=== PATIENT | male | born 1990 | race Two or more races ===

== ENCOUNTER 2017-01-03 12:24 | Inpatient (IN) | payer SELFPAY ==
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
[2017-01-03] MEDS ORDERED: IOPAMIDOL (ISOVUE-300) 100 ML BTL ONE (13:21)
[2017-01-03] MEDS ORDERED: fentaNYL 100 MCG/2 ML INJ IVP ONE (14:17)
[2017-01-03] MEDS ORDERED: LORazepam 2 MG/ML INJ IVP ONE (14:17)
[2017-01-03] MEDS ORDERED: ACETAMINOPHEN 500 MG TAB PO ONE (16:06)
[2017-01-03] MEDS ORDERED: KETOROLAC 30 MG/1 ML SDV IVP ONE (16:06)
[2017-01-03] MEDS ORDERED: CYCLOBENZAPRINE 10 MG TAB PO ONE (16:07)
[2017-01-03] MEDS ORDERED: LIDOCAINE 5% 1 EA PATCH TD SCH (16:15)
[2017-01-03] MEDS ORDERED: LIDOCAINE 5% 1 EA PATCH TD ONE (16:15)
[2017-01-03 16:17] LABS: % IMMATURE GRANULYOCYTES 0.6 % (0.0-1.1); ABSOLUTE IMMATURE GRANULOCYTES 0.08 10^3/uL (0.00-0.10); ADD DIFF? NO; ADD MORPH? NO; ADD SCAN? NO; ATYPICAL LYMPHOCYTE FLAG 0 (0-99); FRAGMENT RBC FLAG 0 (0-99); HEMATOCRIT 42.5 % (40.0-51.0); HEMOGLOBIN 14.9 g/dL (13.7-17.5); LEFT SHIFT FLG 0 (0-99); LIPEMIA HEMOLYSIS FLAG 90 (0-99); MEAN CELL HEMOGLOBIN 33.9 pg (27.9-34.1); MEAN CELL HEMOGLOBIN CONCENTR. 35.1 g/dL (32.4-36.7); MEAN CELL VOLUME 96.8 fL (81.5-99.8); MEAN PLATELET VOLUME 10.4 fL (8.7-11.7); PLATELET CLUMPS FLAG 0 (0-99); PLATELET COUNT 219 10^3/uL (150-400); RED BLOOD CELL COUNT 4.39 10^6/uL (4.40-6.38); RED CELL DISTRIBUTION WIDTH 12.5 % (11.5-15.2)
[2017-01-03 16:23] LABS: ANION GAP 18 mEq/L (8-16); CALCIUM 8.9 mg/dL (8.5-10.4); CARBON DIOXIDE 19 mEq/l (22-31); CHLORIDE 109 mEq/L (97-110); CREATININE 0.6 mg/dL (0.7-1.3); GLOMERULAR FILTRATION RATE > 60; GLUCOSE 85 mg/dL (70-100); POTASSIUM 4.2 mEq/L (3.5-5.2); SODIUM 146 mEq/L (134-144)
[2017-01-03] MEDS ORDERED: ACETAMINOPHEN 325 MG TAB PO PRN (19:45)
[2017-01-03] MEDS ORDERED: ONDANSETRON 4 MG/2 ML VIAL IVP PRN (19:45)
[2017-01-03] MEDS ORDERED: HYDROmorphONE/DILAUDID 2 MG TAB PO PRN (19:55)
[2017-01-03] MEDS ORDERED: BEER 1 EACH EA PO SCH (20:00)
[2017-01-03] MEDS ORDERED: PATCH REMOVAL 1 EA PATCH TD SCH ×2 (21:00)
[2017-01-03] MEDS: ACETAMINOPHEN 500 MG TAB PO SCH (21:53)
[2017-01-03] MEDS: CYCLOBENZAPRINE 10 MG TAB PO SCH (21:53)
[2017-01-03] MEDS: LR 1,000 ML IV SCH (21:54)
[2017-01-03] MEDS: LIDOCAINE 5% 1 EA PATCH TD SCH (21:54)
[2017-01-03] MEDS: KETOROLAC 30 MG/1 ML SDV IVP SCH (23:27)
[2017-01-04] MEDS: ACETAMINOPHEN 500 MG TAB PO SCH ×2 (05:23→11:17)
[2017-01-04] MEDS: LR 1,000 ML IV SCH (05:23)
[2017-01-04] MEDS: KETOROLAC 30 MG/1 ML SDV IVP SCH ×2 (05:24→11:18)
[2017-01-04 08:33] VITALS: RESP 16; TEMP 98.5; O2SAT 98
[2017-01-04] MEDS: LIDOCAINE 5% 1 EA PATCH TD SCH (08:49)
[2017-01-04] MEDS: CYCLOBENZAPRINE 10 MG TAB PO SCH (08:49)
[2017-01-04 11:19] VITALS: BP 133/97; PULSE 75
--- NOTE | 2017-01-04 12:24 | TRAUMAPN ---
Assessment/Plan: PAD#1 01/04/2017 tertiary assessment negative Assessment: 1) Right rib fractures - IS to 1250, pain well controlled. CXR without PTX 2) Distal clavicular FX - using sling 3) ETOH abuse - getting beer daily, slightly jittery but patient and family states that it is at baseline 4) Tobacco abuse - stressed that he must stop tobacco use. Plan: If does well with IS AND pain control adequate will consider discharge later today. Subjective: I want to go home Objective: Vital Signs Temp Pulse Resp BP Pulse Ox 36.9 C 75 16 133/97 H 98 01/04/17 11:18 01/04/17 11:18 01/04/17 11:18 01/04/17 11:18 01/04/17 11:18 01/03/17 01/04/17 01/05/17 05:59 05:59 05:59 Intake Total 1200 Output Total 400 Balance 800 - C-Spine Clearance Cervical Spine Cleared: Yes Physical Exam - Physical Exam General Appearance: WD/WN (Evaluation done with the help of the kittitian interperter), alert, no apparent distress EENT: PERRL/EOMI, normal ENT inspection Neck: non-tender, full range of motion, supple, normal inspection Respiratory: lungs clear, normal breath sounds, other (No e to A changes) Cardiac/Chest: regular rate, rhythm Abdomen: normal bowel sounds, non-tender, soft Male Genitalia: deferred Rectal: deferred Back: Normal inspection Skin: normal color, warm/dry Extremities: normal range of motion, other (right arm in sling) Neuro/Psych: no motor/sensory deficits, alert, normal mood/affect, oriented x 3 Time Spent w/Patient (minutes): 25
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
== END 2017-01-04 15:41 | disposition home or self-care (01) | DRG 563 ==
LOC: OBSVTOIN 19:45 → F3N 19:57
PROVIDERS: ADMIT Surgery; ATTEND Surgery
DX: S42.031A Displaced fracture of lateral end of right clavicle, initial encounter for closed fracture (principal); S22.41XA Multiple fractures of ribs, right side, initial encounter for closed fracture; S40.211A Abrasion of right shoulder, initial encounter; V18.4XXA Pedal cycle driver injured in noncollision transport accident in traffic accident, initial encounter; Y93.55 Activity, bike riding; Z72.0 Tobacco use; F10.10 Alcohol abuse, uncomplicated; Y92.410 Unspecified street and highway as the place of occurrence of the external cause
CPT/HCPCS: 82947-QW; 92523-GN; 96374; 97161-GP; 97166-GO; J1885; J2060; J3010; L0172; Q9967

== ENCOUNTER 2017-01-07 04:01 | Inpatient (IN) | payer SELFPAY ==
[2017-01-07] MEDS ORDERED: LORazepam 2 MG/ML INJ ONE ×2 (04:33→06:25)
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
[2017-01-07] MEDS ORDERED: ONDANSETRON 4 MG/2 ML VIAL IVP PRN (04:43)
[2017-01-07] MEDS ORDERED: ACETAMINOPHEN 325 MG TAB PO PRN (04:43)
[2017-01-07] MEDS ORDERED: ONDANSETRON DISINTEGRATING 4 MG TAB PO PRN (04:43)
[2017-01-07] MEDS ORDERED: oxyCODONE IR 5 MG TAB PO PRN (04:43)
[2017-01-07] MEDS ORDERED: LORazepam 1 MG TAB PO PRN (04:45)
[2017-01-07] MEDS ORDERED: NS 1,000 ML IV SCH (04:45)
[2017-01-07] MEDS ORDERED: LORazepam 2 MG/ML INJ IVP PRN (04:45)
[2017-01-07 04:46] LABS: % IMMATURE GRANULYOCYTES 0.4 % (0.0-1.1); ABSOLUTE IMMATURE GRANULOCYTES 0.04 10^3/uL (0.00-0.10); ADD DIFF? NO; ADD MORPH? NO; ADD SCAN? NO; ATYPICAL LYMPHOCYTE FLAG 20 (0-99); FRAGMENT RBC FLAG 0 (0-99); HEMATOCRIT 38.6 % (40.0-51.0); HEMOGLOBIN 13.1 g/dL (13.7-17.5); LEFT SHIFT FLG 20 (0-99); LIPEMIA HEMOLYSIS FLAG 90 (0-99); MEAN CELL HEMOGLOBIN 33.8 pg (27.9-34.1); MEAN CELL HEMOGLOBIN CONCENTR. 33.9 g/dL (32.4-36.7); MEAN CELL VOLUME 99.5 fL (81.5-99.8); MEAN PLATELET VOLUME 10.3 fL (8.7-11.7); PLATELET CLUMPS FLAG 0 (0-99); PLATELET COUNT 218 10^3/uL (150-400); RED BLOOD CELL COUNT 3.88 10^6/uL (4.40-6.38); RED CELL DISTRIBUTION WIDTH 11.9 % (11.5-15.2)
[2017-01-07] MEDS ORDERED: LORazepam 2 MG/ML INJ IVP ONE ×5 (04:46→07:43)
[2017-01-07 05:00] LABS: INR 0.92 (0.83-1.16); PROTIME(PATIENT) 12.3 SEC (12.0-15.0)
[2017-01-07 05:13] LABS: ALANINE AMINOTRANSFERASE 69 IU/L (21-72); ALKALINE PHOSPHATASE 88 IU/L (38-126); ANION GAP 12 mEq/L (8-16); ASPARTATE AMINOTRANSFERASE 70 IU/L (17-59); BILIRUBIN,TOTAL 0.6 mg/dL (0.1-1.4); BILIRUBIN-CONJUGATED 0.4 mg/dL (0.0-0.5); BILIRUBIN-UNCONJUGATED 0.2 mg/dL (0.0-1.1); CALCIUM 9.4 mg/dL (8.5-10.4); CARBON DIOXIDE 23 mEq/l (22-31); CHLORIDE 102 mEq/L (97-110); CREATININE 0.6 mg/dL (0.7-1.3); ETHANOL SERUM < 10 mg/dL (0-10); GLOMERULAR FILTRATION RATE > 60; GLUCOSE 99 mg/dL (70-100); POTASSIUM 4.5 mEq/L (3.5-5.2); SODIUM 137 mEq/L (134-144)
[2017-01-07] MEDS: DEXMEDETOMIDINE HCL 400 MCG in NS 100 ML IV SCH ×4 (06:12→23:52)
[2017-01-07] MEDS ORDERED: PROPOFOL/EMULSION 1,000 MG/100 ML BOTTLE IV ONE (06:46)
[2017-01-07] MEDS ORDERED: ETOMIDATE 20 MG/10 ML VIAL IVP ONE (06:52)
[2017-01-07] MEDS ORDERED: ROCURONIUM 100 MG/10 ML VIAL IVP ONE (06:54)
[2017-01-07] MEDS ORDERED: ETOMIDATE 40 MG/20 ML INJ ONE (07:07)
[2017-01-07] MEDS ORDERED: PROPOFOL 200 MG/20 ML VIAL IVP ONE (07:16)
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
[2017-01-07] MEDS ORDERED: PROPOFOL/EMULSION 100 ML IV SCH ×2 (07:30→08:50)
[2017-01-07] MEDS: LORazepam 1 MG TAB PO SCH ×3 (09:09→16:48)
[2017-01-07] MEDS: fentaNYL/NACL 100 ML IV SCH ×2 (09:24→16:47)
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
[2017-01-07 10:16] LABS: BASE EXCESS -1.4 mEq/L (-2.5-2.5); BICARBONATE 22 mEq/L (22-26); MEASURED OXYGEN SATURATION 99 % (92-95); PCO2 34 mmHg (34-38); PO2 157 mmHg (65-75); TCO2 23 mEq/L (23-27)
[2017-01-07 10:18] LABS: END TIDAL CO2 38; O2 CONCENTRATIION 40 % (0-100); P/F RATIO 393 RATIO; PATIENT RATE 16; PIP 15; PRESSURE SUPPORT 7; SIMV YES
[2017-01-07] MEDS: NICOTINE 21 MG/24 HR PATCH TD SCH (11:04)
[2017-01-07 11:45] LABS: ANION GAP 10 mEq/L (8-16); CALCIUM 9.1 mg/dL (8.5-10.4); CARBON DIOXIDE 24 mEq/l (22-31); CHLORIDE 102 mEq/L (97-110); CREATININE 0.6 mg/dL (0.7-1.3); GLOMERULAR FILTRATION RATE > 60; GLUCOSE 97 mg/dL (70-100); MAGNESIUM 1.8 mg/dL (1.6-2.3); POTASSIUM 4.6 mEq/L (3.5-5.2); SODIUM 136 mEq/L (134-144)
[2017-01-07 13:15] LABS: POTASSIUM 3.5 mEq/L (3.5-5.2)
[2017-01-07] MEDS: LORazepam 2 MG/ML INJ IVP PRN ×3 (14:33→23:41)
[2017-01-07 15:36] LABS: PHENCYCLIDINE URINE BCH < 6 ng/ml (NEGATIVE); PHENCYCLIDINE URINE BCH NEGATIVE (NEGATIVE); TETRAHYDROCANNABINOL URINE < 5 ng/mL (NEGATIVE); TETRAHYDROCANNABINOL URINE NEGATIVE (NEGATIVE)
[2017-01-07] MEDS ORDERED: PROTOCOL K PHOSPHATE 1 DOSE IV PRN (19:54)
[2017-01-07] MEDS ORDERED: PROTOCOL POTASSIUM 1 DOSE MISC PRN (19:54)
[2017-01-07] MEDS ORDERED: PROTOCOL MAGNESIUM 1 DOSE IV PRN (19:54)
[2017-01-07] MEDS ORDERED: LORazepam 1 MG TAB PO SCH (20:00)
[2017-01-07 20:39] LABS: MAGNESIUM 1.7 mg/dL (1.6-2.3); POTASSIUM 3.4 mEq/L (3.5-5.2)
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
[2017-01-07] MEDS: THIAMINE HCL 100 MG in NS 100 ML IV SCH (21:26)
[2017-01-07] MEDS: LORazepam 2 MG/ML INJ IVP SCH (21:27)
[2017-01-07] MEDS ORDERED: POTASSIUM CL 20 MEQ/15 ML UDCUP TUBE ONE (22:15)
[2017-01-07] MEDS ORDERED: MAGNESIUM SULF 1 GM/DEXTROSE 100 ML IV ONE (22:43)
[2017-01-08] MEDS: LORazepam 2 MG/ML INJ IVP SCH ×5 (00:21→23:54)
[2017-01-08] MEDS: LORazepam 2 MG/ML INJ IVP PRN ×5 (01:25→15:16)
[2017-01-08] MEDS: fentaNYL/NACL 100 ML IV SCH ×2 (02:48→08:23)
[2017-01-08] MEDS: DEXMEDETOMIDINE HCL 400 MCG in NS 100 ML IV SCH ×3 (04:03→13:37)
[2017-01-08 05:39] LABS: % IMMATURE GRANULYOCYTES 0.4 % (0.0-1.1); ABSOLUTE IMMATURE GRANULOCYTES 0.05 10^3/uL (0.00-0.10); ADD DIFF? NO; ADD MORPH? NO; ADD SCAN? NO; ATYPICAL LYMPHOCYTE FLAG 0 (0-99); FRAGMENT RBC FLAG 0 (0-99); HEMATOCRIT 36.1 % (40.0-51.0); HEMOGLOBIN 12.5 g/dL (13.7-17.5); LEFT SHIFT FLG 10 (0-99); LIPEMIA HEMOLYSIS FLAG 90 (0-99); MEAN CELL HEMOGLOBIN 34.2 pg (27.9-34.1); MEAN CELL HEMOGLOBIN CONCENTR. 34.6 g/dL (32.4-36.7); MEAN CELL VOLUME 98.6 fL (81.5-99.8); MEAN PLATELET VOLUME 10.5 fL (8.7-11.7); PLATELET CLUMPS FLAG 0 (0-99); PLATELET COUNT 226 10^3/uL (150-400); RED BLOOD CELL COUNT 3.66 10^6/uL (4.40-6.38); RED CELL DISTRIBUTION WIDTH 11.8 % (11.5-15.2)
[2017-01-08 05:50] LABS: ANION GAP 8 mEq/L (8-16); CALCIUM 8.3 mg/dL (8.5-10.4); CARBON DIOXIDE 22 mEq/l (22-31); CHLORIDE 106 mEq/L (97-110); CREATININE 0.5 mg/dL (0.7-1.3); GLOMERULAR FILTRATION RATE > 60; GLUCOSE 97 mg/dL (70-100); MAGNESIUM 1.9 mg/dL (1.6-2.3); POTASSIUM 3.6 mEq/L (3.5-5.2); SODIUM 136 mEq/L (134-144)
[2017-01-08] MEDS: THIAMINE HCL 100 MG in NS 100 ML IV SCH (08:19)
[2017-01-08] MEDS: NICOTINE 21 MG/24 HR PATCH TD SCH (08:20)
[2017-01-08] MEDS ORDERED: D5W 1/2 NS W/ 20 KCl/L 1,000 ML IV SCH (09:00)
[2017-01-08] MEDS ORDERED: THIAMINE HCL 200 MG/2 ML VIAL IV SCH (09:00)
[2017-01-08 09:11] LABS: POTASSIUM 3.5 mEq/L (3.5-5.2)
[2017-01-08] MEDS: POTASSIUM Cl (KCl) 50 ML IV SCH ×3 (09:31→12:30)
[2017-01-08] MEDS: ENOXAPARIN 40 MG/0.4 ML SYR SC SCH (12:30)
[2017-01-08] MEDS: FAMOTIDINE 20 MG/NACL 50 ML IV SCH ×2 (12:30→21:03)
[2017-01-08] MEDS: KETOROLAC 30 MG/1 ML SDV IVP PRN ×2 (14:04→22:22)
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
[2017-01-08] MEDS ORDERED: HYDROmorphONE/DILAUDID 2 MG TAB PO PRN (16:43)
[2017-01-08] MEDS ORDERED: CYCLOBENZAPRINE 10 MG TAB PO PRN (16:43)
[2017-01-08] MEDS ORDERED: LIDOCAINE 5% 1 EA PATCH TD SCH (16:45)
[2017-01-08] MEDS ORDERED: IBUPROFEN 200 MG TAB PO SCH (18:00)
[2017-01-08 19:29] LABS: POTASSIUM 4.4 mEq/L (3.5-5.2)
[2017-01-08] MEDS: LIDOCAINE 5% 1 EA PATCH TD SCH (21:03)
[2017-01-09] MEDS: LORazepam 2 MG/ML INJ IVP SCH (05:37)
[2017-01-09 06:27] LABS: ANION GAP 11 mEq/L (8-16); CALCIUM 8.7 mg/dL (8.5-10.4); CARBON DIOXIDE 21 mEq/l (22-31); CHLORIDE 105 mEq/L (97-110); CREATININE 0.5 mg/dL (0.7-1.3); GLOMERULAR FILTRATION RATE > 60; GLUCOSE 91 mg/dL (70-100); SODIUM 137 mEq/L (134-144)
[2017-01-09 06:32] LABS: % IMMATURE GRANULYOCYTES 0.5 % (0.0-1.1); ABSOLUTE IMMATURE GRANULOCYTES 0.06 10^3/uL (0.00-0.10); ADD DIFF? NO; ADD MORPH? NO; ADD SCAN? NO; ATYPICAL LYMPHOCYTE FLAG 0 (0-99); FRAGMENT RBC FLAG 0 (0-99); HEMATOCRIT 38.1 % (40.0-51.0); HEMOGLOBIN 13.1 g/dL (13.7-17.5); LEFT SHIFT FLG 30 (0-99); LIPEMIA HEMOLYSIS FLAG 90 (0-99); MEAN CELL HEMOGLOBIN 34.1 pg (27.9-34.1); MEAN CELL HEMOGLOBIN CONCENTR. 34.4 g/dL (32.4-36.7); MEAN CELL VOLUME 99.2 fL (81.5-99.8); MEAN PLATELET VOLUME 10.3 fL (8.7-11.7); PLATELET CLUMPS FLAG 0 (0-99); PLATELET COUNT 259 10^3/uL (150-400); RED BLOOD CELL COUNT 3.84 10^6/uL (4.40-6.38); RED CELL DISTRIBUTION WIDTH 11.8 % (11.5-15.2)
[2017-01-09] MEDS ORDERED: IBUPROFEN 200 MG TAB PO PRN ×3 (07:37→10:17)
[2017-01-09] MEDS ORDERED: IBUPROFEN 200 MG TAB PO SCH (08:00)
[2017-01-09 08:28] VITALS: RESP 16
[2017-01-09] MEDS: ENOXAPARIN 40 MG/0.4 ML SYR SC SCH (08:53)
[2017-01-09] MEDS: KETOROLAC 30 MG/1 ML SDV IVP PRN (08:53)
[2017-01-09] MEDS: THIAMINE HCL 100 MG TAB PO SCH (08:53)
[2017-01-09] MEDS: PATCH REMOVAL 1 EA PATCH TD SCH (08:54)
[2017-01-09] MEDS: NICOTINE 21 MG/24 HR PATCH TD SCH (08:54)
[2017-01-09] MEDS: LORazepam 2 MG/ML INJ IVP PRN (08:55)
[2017-01-09] MEDS ORDERED: chlordiazePOXIDE 25 MG CAP PO SCH (09:00)
[2017-01-09] MEDS ORDERED: PNEUMOCOCCAL 0.5ML VACCINE VIAL IM ONE (10:03)
[2017-01-09] MEDS ORDERED: LORazepam 0.5 MG TAB PO PRN (10:15)
[2017-01-09] MEDS ORDERED: MAGNESIUM HYDROXIDE 30 ML UDCUP PO PRN (10:18)
[2017-01-09] MEDS ORDERED: LACTULOSE 20 GM/30 ML UDCUP PO PRN (10:18)
[2017-01-09] MEDS ORDERED: POLYETHYLENE GLYCOL 3350 17 GM PKT PO PRN (10:18)
[2017-01-09] MEDS ORDERED: BISACODYL 10 MG SUPP PR PRN (10:18)
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
[2017-01-09] MEDS: chlordiazePOXIDE 25 MG CAP PO SCH (21:08)
[2017-01-09] MEDS: LIDOCAINE 5% 1 EA PATCH TD SCH (21:09)
[2017-01-09] MEDS: SENNOSIDES/DOCUSATE SODIUM TAB PO SCH (21:10)
[2017-01-09 23:11] VITALS: O2SAT 98
[2017-01-10 07:23] VITALS: BP 141/98; PULSE 86; TEMP 98.4
[2017-01-10] MEDS: NICOTINE 21 MG/24 HR PATCH TD SCH (08:20)
[2017-01-10] MEDS: THIAMINE HCL 100 MG TAB PO SCH (08:21)
[2017-01-10] MEDS: ENOXAPARIN 40 MG/0.4 ML SYR SC SCH (08:21)
[2017-01-10] MEDS: chlordiazePOXIDE 25 MG CAP PO SCH (08:21)
[2017-01-10] MEDS: SENNOSIDES/DOCUSATE SODIUM TAB PO SCH (08:21)
[2017-01-10] MEDS: PATCH REMOVAL 1 EA PATCH TD SCH (08:22)
--- NOTE | 2017-01-11 04:03 | GDS ---
[f rep st] DISCHARGE SUMMARY DISCHARGE DIAGNOSES: 1. Severe alcohol withdrawal. 2. Polysubstance abuse. 3. Recent rib fractures. 4. Acute hypoxemic respiratory failure. 5. Recent clavicular fracture. STUDIES AND PROCEDURES DONE: Multiple x-rays. 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 PHYSICAL EXAMINATION: GENERAL: The patient is alert. VITAL SIGNS: Afebrile at 36.9, pulse is 86, respiratory rate 16, blood pressure is 141/98, saturating 98% on room air. I have seen and evaluat ed the patient on the day of discharge. HOSPITAL COURSE: Patient is a 26-year-old male presenting to the hospital with acute alcohol withdr awal. He was evaluated and diagnosed with: 1. Severe alcohol withdrawal. The patient received supportive medications and assistance. His wit hdrawal is significantly improved. He is tolerating a regular diet. Will continue Librium and supp ort in the outpatient setting. Case Management has been involved in his care, as well as Radha Rodrigez . He does have supportive family to assist in this acute problem. 2. Acute hypoxemic respiratory failure. The patient required acute intubation at the time of admis iraj secondary to inability to protect his airway. He is saturating greater than 90% on room air at the time of disposition and does not require any further supplemental oxygen. 3. Polysubstance abuse. He will not be prescribed any narcotics at the time of disposition. 4. Multiple rib fractures with a clavicular fracture. This condition is stable at the time of disp osition. DISPOSITION: The patient will be discharged home with his family. I reviewed his care with Dr. Too Calloway, as well as Case Management. FOLLOWUP: Will be with [facility]. An appointment has been made on January 13, at 10 a .m. I have reviewed the disposition instructions with the patient and the cook supervisor. DISCHARGE MEDICATIONS: Include Librium and thiamine. Again, the patient will be discharged home safely with family and has follow-up appointments made in the outpatient setting. I spent greater than 35 minutes in the care, coordination, and management of the patient's dispositi on. /[id number]/MODL
== END 2017-01-10 11:38 | disposition home or self-care (01) | DRG 896 ==
LOC: F2N 08:14 → F3E 01-09 15:45
PROVIDERS: ADMIT Student in an Organized Health Care Education/Training Program; ATTEND Internal Medicine
PROC: 5A1935Z Respiratory Ventilation, Less than 24 Consecutive Hours (ICD-10-PCS; principal; 2017-01-07)
PROC: 0BH17EZ Insertion of Endotracheal Airway into Trachea, Via Natural or Artificial Opening (ICD-10-PCS; principal; 2017-01-07)
DX: F10.231 Alcohol dependence with withdrawal delirium (principal); J96.01 Acute respiratory failure with hypoxia; R44.0 Auditory hallucinations; R44.1 Visual hallucinations; R00.0 Tachycardia, unspecified; S42.031D Displaced fracture of lateral end of right clavicle, subsequent encounter for fracture with routine healing; S22.41XD Multiple fractures of ribs, right side, subsequent encounter for fracture with routine healing; F14.10 Cocaine abuse, uncomplicated; V18.4XXD Pedal cycle driver injured in noncollision transport accident in traffic accident, subsequent encounter; Y93.55 Activity, bike riding; F17.210 Nicotine dependence, cigarettes, uncomplicated; Z23 Encounter for immunization
CPT/HCPCS: 80307; 97161-GP; 97165-GO; 97535-GO; G0009; G0480; J1650; J1885; J2060; J2405; J2704; J3010; J3411; J3475

== ENCOUNTER 2017-04-01 15:39 | Inpatient (IN) | payer OTHER ==
[2017-04-01] MEDS ORDERED: LORazepam 2 MG/ML INJ IVP ONE ×4 (15:48→19:25)
[2017-04-01] MEDS ORDERED: ONDANSETRON 4 MG/2 ML VIAL IVP ONE (15:48)
[2017-04-01] MEDS ORDERED: NS 1,000 ML IV ONE ×3 (15:48→19:33)
[2017-04-01 16:02] LABS: % IMMATURE GRANULYOCYTES 0.5 % (0.0-1.1); ABSOLUTE IMMATURE GRANULOCYTES 0.06 10^3/uL (0.00-0.10); ADD DIFF? NO; ADD MORPH? NO; ADD SCAN? NO; ATYPICAL LYMPHOCYTE FLAG 0 (0-99); FRAGMENT RBC FLAG 0 (0-99); HEMATOCRIT 45.5 % (40.0-51.0); HEMOGLOBIN 15.6 g/dL (13.7-17.5); LEFT SHIFT FLG 0 (0-99); LIPEMIA HEMOLYSIS FLAG 90 (0-99); MEAN CELL HEMOGLOBIN 33.3 pg (27.9-34.1); MEAN CELL HEMOGLOBIN CONCENTR. 34.3 g/dL (32.4-36.7); MEAN CELL VOLUME 97.2 fL (81.5-99.8); MEAN PLATELET VOLUME 10.7 fL (8.7-11.7); PLATELET CLUMPS FLAG 10 (0-99); PLATELET COUNT 272 10^3/uL (150-400); RED BLOOD CELL COUNT 4.68 10^6/uL (4.40-6.38); RED CELL DISTRIBUTION WIDTH 12.8 % (11.5-15.2)
[2017-04-01 16:12] LABS: ALANINE AMINOTRANSFERASE 88 IU/L (21-72); ALBUMIN 5.4 g/dL (3.5-5.0); ALKALINE PHOSPHATASE 130 IU/L (38-126); ANION GAP 37 mEq/L (8-16); ASPARTATE AMINOTRANSFERASE 90 IU/L (17-59); BILIRUBIN-CONJUGATED 0.5 mg/dL (0.0-0.5); BILIRUBIN-UNCONJUGATED 0.5 mg/dL (0.0-1.1); CALCIUM 10.1 mg/dL (8.5-10.4); CHLORIDE 92 mEq/L (97-110); CREATININE 0.9 mg/dL (0.7-1.3); GLOMERULAR FILTRATION RATE > 60; GLUCOSE 138 mg/dL (70-100); POTASSIUM 3.2 mEq/L (3.5-5.2); SODIUM 136 mEq/L (134-144); TOTAL PROTEIN 9.3 g/dL (6.3-8.2)
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
[2017-04-01 16:19] LABS: CARBON DIOXIDE 7 mEq/l (22-31)
--- NOTE | 2017-04-01 16:28 | CPEKG ---
Heart Rate: 110 RR Interval: 545 P-R Interval: 128 QRSD Interval: 92 QT Interval: 360 QTC Interval: 488 P [place]: 75 QRS [place]: 20 T Wave [place]: 0 EKG Severity - BORDERLINE ECG - EKG Impression: SINUS TACHYCARDIA EKG Impression: BORDERLINE PROLONGED QT INTERVAL Electronically Signed By: Tyrel Canales 01-Apr-2017 20:23:32
[2017-04-01] MEDS ORDERED: chlordiazePOXIDE 25 MG CAP ONE (16:42)
[2017-04-01 16:43] LABS: ETHANOL SERUM 10 mg/dL (0-10)
[2017-04-01] MEDS ORDERED: chlordiazePOXIDE 25 MG CAP PO ONE ×2 (16:54→17:38)
[2017-04-01] MEDS ORDERED: ACETAMINOPHEN 325 MG TAB PO PRN (19:07)
[2017-04-01] MEDS ORDERED: ONDANSETRON 4 MG/2 ML VIAL IVP PRN (19:07)
[2017-04-01] MEDS ORDERED: THIAMINE HCL 500 MG in NS 100 ML IV ONE (19:07)
[2017-04-01] MEDS ORDERED: LORazepam 2 MG/ML INJ IVP PRN (19:10)
--- NOTE | 2017-04-01 19:44 | GHP ---
[f rep st] HISTORY AND PHYSICAL DATE OF ADMISSION: 04/01/2017 CHIEF COMPLAINT: Seizure. HISTORY OF PRESENT ILLNESS: This is a 26-year-old man who is accompanied by his family, through ic h most of the history is provided, who presents with a seizure. Apparently, a co-worker saw him. He is somewhat alert but somewhat confused when I am seeing him. He notes that he felt nauseous prior to the seizure and then does not remember much else. He did bite his tongue. Unclear if he lost con trol of his bowel and bladder. Unclear if he has been drinking recently as his family does not allow him to drink around them. They do not believe he has been trying to cut down, however. He was admi tted here in December for severe alcohol withdrawal, which required intubation at that point. PAST MEDICAL/SURGICAL HISTORY: Recent trauma. MEDICATIONS: Please see medication reconciliation. ALLERGIES: No known drug allergies. FAMILY HISTORY: His [id number] has an alcohol abuse problem. SOCIAL HISTORY: He smokes and drinks, as above. REVIEW OF SYSTEMS: A 10-point review of systems is conducted and is negative, except for HPI. PHYSICAL EXAM: VITAL SIGNS: Blood pressure 130/69, heart rate 117, respiration rate 16, saturation 94% on room air. Temperature is 36.7. GENERAL: The patient is a disoriented man who appears quite tremulous. HEENT: Shows him to have bilateral conjunctival injection. He has a small laceration on the left side of his tongue, which is not open. CARDIOVASCULAR: Exam shows him to be tachycardic. There is a faint murmur. PULMONARY: Exam shows lungs clear to auscultation bilaterally. ABDOMEN: Soft, nontender, nondistended. SKIN: Exam shows no rash. : Exam shows no Tabares. NEUROLOGIC: Exam shows him to be disoriented, although he does know where he is. He is tremulous. PSYCHIATRIC: Exam is unobtainable. LABORATORY DATA: White count is 12.3, potassium 3.2, bicarb 7. AST 90, ALT 88, alkaline phosphatase 130, total protein 9.3. Alcohol level is 10. DATA: 1. I discussed this with Dr. Thomas. Will admit to the step-down unit. 2. I reviewed his head CT scan that shows nothing acute. IMPRESSION/PLAN: A 26-year-old man with a seizure and severe alcohol withdrawal. 1. Severe alcohol withdrawal: Appears quite tremulous. Last admission, required intubation. Will triage him to the step-down unit, give him aggressive benzodiazepines. He may need Precedex. 2. Alcohol abuse: Will give him IV thiamine. Follow his electrolytes and replete as necessary. 3. Seizure: This is due to alcohol withdrawal. Unclear if he had been trying to quit drinking. I note that he does not have a significant alcohol level. Will use seizure prophylaxis with benzodiaze pines for now. Consider adding a different agent when he is not requiring as many benzodiazepines. /[id number]/MODL
[2017-04-01 19:52] LABS: ANION GAP 14 mEq/L (8-16); CALCIUM 8.4 mg/dL (8.5-10.4); CARBON DIOXIDE 20 mEq/l (22-31); CHLORIDE 98 mEq/L (97-110); CREATININE 0.6 mg/dL (0.7-1.3); GLOMERULAR FILTRATION RATE > 60; GLUCOSE 68 mg/dL (70-100); MAGNESIUM 1.8 mg/dL (1.6-2.3); POTASSIUM 3.5 mEq/L (3.5-5.2); SODIUM 132 mEq/L (134-144)
[2017-04-01] MEDS: D5W 1/2 NS W/ 20 KCl/L 1,000 ML IV SCH (21:37)
[2017-04-02 05:41] LABS: % IMMATURE GRANULYOCYTES 0.4 % (0.0-1.1); ABSOLUTE IMMATURE GRANULOCYTES 0.05 10^3/uL (0.00-0.10); ADD DIFF? NO; ADD MORPH? NO; ADD SCAN? NO; ATYPICAL LYMPHOCYTE FLAG 0 (0-99); FRAGMENT RBC FLAG 0 (0-99); HEMATOCRIT 37.4 % (40.0-51.0); LEFT SHIFT FLG 0 (0-99); LIPEMIA HEMOLYSIS FLAG 90 (0-99); MEAN CELL HEMOGLOBIN CONCENTR. 34.8 g/dL (32.4-36.7); MEAN CELL VOLUME 94.9 fL (81.5-99.8); MEAN PLATELET VOLUME 10.5 fL (8.7-11.7); PLATELET CLUMPS FLAG 0 (0-99); PLATELET COUNT 179 10^3/uL (150-400); RED BLOOD CELL COUNT 3.94 10^6/uL (4.40-6.38); RED CELL DISTRIBUTION WIDTH 12.9 % (11.5-15.2)
[2017-04-02 05:42] LABS: ALANINE AMINOTRANSFERASE 64 IU/L (21-72); ALBUMIN 3.5 g/dL (3.5-5.0); ALKALINE PHOSPHATASE 86 IU/L (38-126); ANION GAP 8 mEq/L (8-16); ASPARTATE AMINOTRANSFERASE 53 IU/L (17-59); BILIRUBIN,TOTAL 1.3 mg/dL (0.1-1.4); CARBON DIOXIDE 24 mEq/l (22-31); CHLORIDE 99 mEq/L (97-110); CREATININE 0.6 mg/dL (0.7-1.3); GLOMERULAR FILTRATION RATE > 60; GLUCOSE 93 mg/dL (70-100); MAGNESIUM 1.8 mg/dL (1.6-2.3); POTASSIUM 3.1 mEq/L (3.5-5.2); SODIUM 131 mEq/L (134-144); TOTAL PROTEIN 6.4 g/dL (6.3-8.2)
[2017-04-02] MEDS: D5W 1/2 NS W/ 20 KCl/L 1,000 ML IV SCH (06:06)
[2017-04-02] MEDS: THIAMINE HCL 100 MG TAB PO SCH (08:44)
[2017-04-02] MEDS ORDERED: chlordiazePOXIDE 25 MG CAP PO PRN (10:14)
[2017-04-02] MEDS: LORazepam 1 MG TAB PO PRN (10:32)
[2017-04-02] MEDS ORDERED: POTASSIUM CL 20 MEQ TAB PO ONE (14:00)
[2017-04-02] MEDS ORDERED: LORazepam 2 MG/ML INJ IVP PRN (14:38)
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
[2017-04-02] MEDS ORDERED: PROTOCOL POTASSIUM 1 DOSE MISC PRN (14:40)
[2017-04-02] MEDS ORDERED: NS 1,000 ML IV SCH (15:30)
[2017-04-02] MEDS: chlordiazePOXIDE 25 MG CAP PO SCH ×2 (16:33→21:45)
[2017-04-02 19:40] VITALS: RESP 16
[2017-04-02 20:04] LABS: POTASSIUM 3.9 mEq/L (3.5-5.2)
[2017-04-02] MEDS ORDERED: POTASSIUM CL 10 MEQ TAB PO ONE (20:11)
[2017-04-02] MEDS: NS W/ 20 KCl/L 1,000 ML IV SCH (21:46)
[2017-04-03] MEDS: LORazepam 1 MG TAB PO PRN ×2 (02:22→06:19)
[2017-04-03 05:21] LABS: ANION GAP 10 mEq/L (8-16); CALCIUM 9.3 mg/dL (8.5-10.4); CARBON DIOXIDE 22 mEq/l (22-31); CHLORIDE 101 mEq/L (97-110); CREATININE 0.6 mg/dL (0.7-1.3); GLOMERULAR FILTRATION RATE > 60; GLUCOSE 81 mg/dL (70-100); MAGNESIUM 1.9 mg/dL (1.6-2.3); SODIUM 133 mEq/L (134-144)
[2017-04-03 05:22] VITALS: O2SAT 96
[2017-04-03] MEDS: NS W/ 20 KCl/L 1,000 ML IV SCH (05:40)
[2017-04-03 07:10] VITALS: BP 116/81; PULSE 85; TEMP 97.8
[2017-04-03] MEDS ORDERED: chlordiazePOXIDE 25 MG CAP PO SCH (09:00)
[2017-04-03] MEDS: THIAMINE HCL 100 MG TAB PO SCH (09:39)
[2017-04-03] MEDS ORDERED: FLU VACC QS 2017-18 (3YR+)/PF 0.5 ML SYR (FLUARIX QUAD) IM ONE (11:27)
--- NOTE | 2017-04-03 17:21 | ASDISCHSUM ---
Discharge Information Plan Status: Medically Cleared to Leave: Discharge Date:04/03/2017 12:39 PM CM D/C Disposition: ADT D/C Disposition:Home, Routine, Self-Care Projected Discharge Date:04/03/2017 12:39 PM Transportation at D/C: Discharge Delay Reason: Follow-Up Date:04/03/2017 12:39 PM Discharge Slot: Final Diagnosis: Placement Information Patient Contact Information Contact Name:HUMPHREY Relationship: Address: Home Phone: Work Phone: City: Alternate Phone: State/[place] Code: Email: Financial Information Financial Class:Self-Pay Primary Plan Desc:WE CARE Primary Plan Number:99 Secondary Plan Desc: Secondary Plan Number: Assessment Information [facility] CM Progress Note CM Note CM Note Notes: Met with pt and sister before DC today. Mauritian interpretation provided. Sister very concerned about pt's continued drinking and how it is affecting her family including a mother in [place] and her and three children. Sister stated that pt didn't drink until a few years after he came to the [facility]. He has indicated in the past and today with this CM that he feels that he can stop drinking on his oown. He is not showing interest in AA or other programs. Discussed with pt and sister that alcoholism is a disease and he needs support to stop drinking. Pt might consider AA. Gave sister the printout of Mauritian speaking AA groups. Called a phone number on the list and was connected with Oleg Isabel, who is khmer speaking and agreed to talk with pt's sister about scheduling a time to meet with pt and sister later today. Sister called Oleg back and they set up an appt. Also made a f/u appt with [facility] for pt. It is Ana Maria 04/07 at 10:25 with Emmy Teixeira. Asked Tacho at [facility] if they can also help pt with his ETOH and provide info on the [facility] withdrawal mgmt program. Tacho stated he would put that request in the chart. Date Signed: 04/03/2017 05:20 PM Electronically Signed By:Jesusita Polanco LCSW Intervention Information
--- NOTE | 2017-04-03 22:14 | GDS ---
[f rep st] DISCHARGE SUMMARY DISCHARGE DIAGNOSES: 1. Seizure secondary to alcohol withdrawal. 2. Hyponatremia. 3. Hypokalemia, resolved. IMAGING STUDIES/PROCEDURES: Head CT April 01, 2017, showed no acute intracranial abnormality. HISTORY OF DETAILS: Please see the history and physical dated April 01, 2017. In brief, the fanneie saira is a 26-year-old male with a history of alcohol dependence with prior alcohol withdrawal requiring intensive care with intubation and mechanical ventilation, who presents to the emergency department after a seizure. This was suspected to be an alcohol withdrawal seizure and he was admitted to the [facility] for further management. HOSPITAL COURSE: The patient admitted to the step-down unit in severe alcohol withdrawal. He was tr eated aggressively with benzodiazepines. However, he did not require Precedex. He was placed on sei zure precautions. He had no further seizures during the hospitalization. His CIWA scores are down t o 1 at the time of discharge. He is discharged home to finish a Librium taper 25 mg twice daily for 2 more days, then 25 mg daily p.r.n. for 2 days after that. He did have electrolyte abnormalities on arrival with a low potassium and a low serum bicarb with an elevated anion gap, likely secondary to his seizure. His bicarb normalized. His anion gap closed. His sodium dropped to 131, though improv ed with normal saline up to 133 at discharge. His LFTs were noted to be initially elevated, likely s econdary to alcohol. The following day however, these normalized. The patient has normal vital sign s on the day of discharge and feels well and wishes to go home. DISPOSITION: Patient is discharged home in stable condition. FOLLOWUP: The patient should establish with a primary care physician. He was also referred to [facility] for continued management of his alcohol abuse. DISCHARGE MEDICATIONS: New medications on discharge include Librium 25 mg p.o. twice daily for 2 day s, then 25 mg p.o. daily for 2 days then off. /[id number]/MODL
== END 2017-04-03 12:39 | disposition home or self-care (01) | DRG 897 ==
LOC: EDUNIT# → F2N 21:18 → F1N 04-02 12:29
PROVIDERS: ADMIT Student in an Organized Health Care Education/Training Program; ATTEND Hospitalist
DX: F10.239 Alcohol dependence with withdrawal, unspecified (principal); R56.9 Unspecified convulsions; E87.1 Hypo-osmolality and hyponatremia; E87.6 Hypokalemia
CPT/HCPCS: 80305; 96374; G0008; G0480; J2060; J2405; J3411

== ENCOUNTER 2017-06-20 00:54 | Emergency (ER) | payer OTHER ==
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
[2017-06-20] MEDS ORDERED: CHLORDIAZEPOXIDE 25MG PREPK#6 BTL TAKEHOME ONE (05:31)
[2017-06-20 05:50] VITALS: BP 112/74; PULSE 74; RESP 16; TEMP 97.9; O2SAT 96
== END 2017-06-20 05:51 | disposition home or self-care (01) ==
LOC: EDUNIT#
DX: S00.03XA Contusion of scalp, initial encounter (principal); F10.920 Alcohol use, unspecified with intoxication, uncomplicated; F17.200 Nicotine dependence, unspecified, uncomplicated; W19.XXXA Unspecified fall, initial encounter; Y92.410 Unspecified street and highway as the place of occurrence of the external cause

== ENCOUNTER 2017-06-23 00:29 | Emergency (ER) | payer OTHER ==
[2017-06-23] MEDS ORDERED: NS 1,000 ML IV ONE ×2 (00:37→01:23)
[2017-06-23] MEDS ORDERED: LORazepam 2 MG/ML INJ IVP ONE (00:37)
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
[2017-06-23 00:51] LABS: PLATELET COUNT 308 10^3/uL (150-400)
[2017-06-23] MEDS ORDERED: ONDANSETRON 4 MG/2 ML VIAL ONE (00:55)
[2017-06-23 01:10] VITALS: RESP 18; TEMP 98.1
[2017-06-23 02:10] VITALS: BP 144/79; PULSE 99; O2SAT 96
== END 2017-06-23 02:29 | disposition home or self-care (01) ==
DX: F41.9 Anxiety disorder, unspecified (principal); F10.129 Alcohol abuse with intoxication, unspecified; F17.200 Nicotine dependence, unspecified, uncomplicated; E86.9 Volume depletion, unspecified
CPT/HCPCS: 96374; G0480; J2060; J2405

== ENCOUNTER 2017-07-04 06:53 | Emergency (ER) | payer OTHER ==
[2017-07-04] MEDS ORDERED: OLANZapine 10 MG/2 ML VIAL IM ONE (07:33)
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
[2017-07-04 11:41] VITALS: BP 112/78; PULSE 93; RESP 16; TEMP 98.2; O2SAT 95
== END 2017-07-04 11:25 | disposition home or self-care (01) ==
LOC: EDUNIT#
DX: F10.920 Alcohol use, unspecified with intoxication, uncomplicated (principal); F91.9 Conduct disorder, unspecified; F17.200 Nicotine dependence, unspecified, uncomplicated